=== PATIENT | male | born 1995 | race Caucasian/White ===

== ENCOUNTER 2024-02-09 16:27 | Emergency (ER) | payer OTHER, MEDICARE, MEDICAID, SELFPAY ==
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
[2024-02-09 16:59] VITALS: BP 130/72; BP 139/90; PULSE 80; PULSE 95; RESP 16; TEMP 37.1; O2SAT 96; O2SAT 97; BMI 22.3
[2024-02-09 17:06] VITALS: BP 139/90; PULSE 95; RESP 16; TEMP 37.1; O2SAT 96
[2024-02-09 22:04] VITALS: BP 121/87; PULSE 83; RESP 16; TEMP 37.1; O2SAT 98
[2024-02-09 22:05] VITALS: BP 121/87; PULSE 83; RESP 16; TEMP 37.1; O2SAT 98
== END 2024-02-09 22:06 | disposition home or self-care (01) ==
PROVIDERS: Emergency Provider Emergency Medicine; PCP Physician Assistant
DX: S09.90XA Unspecified injury of head, initial encounter (principal); R51.9 Headache, unspecified; V53.6XXA Passenger in pick-up truck or van injured in collision with car, pick-up truck or van in traffic accident, initial encounter; Y93.89 Activity, other specified; Y92.488 Other paved roadways as the place of occurrence of the external cause; Y99.8 Other external cause status
CPT/HCPCS: 70450; 99284